=== PATIENT | female | born 1980 | race African-American/Black ===

== ENCOUNTER → 2016-08-25 | Outpatient (CLI) | payer MEDICAID ==
[2016-08-25 09:48] LABS: BASOPHILS % (AUTO) 3 % (0-2); EOSINOPHILS # (AUTO) 0.2 10^3uL; EOSINOPHILS % (AUTO) 4 % (0-4); MEAN CORPUSCULAR HEMOGLOBIN 28.7 PG (26.0-34.0); MEAN CORPUSCULAR HGB CONC 33.3 g/dL (31.0-37.0); MEAN CORPUSCULAR VOLUME 86 FL (80-100); MEAN PLATELET VOLUME 10.9 FL (6.0-9.5); MONOCYTES # (AUTO) 0.5 X10^3; MONOCYTES % (AUTO) 9 % (3-11); NEUTROPHILS # (AUTO) 2.5 X10^3; NEUTROPHILS % (AUTO) 47 % (51-67); PLATELET COUNT 201 10^3uL (150-450); WHITE BLOOD COUNT 5.38 10^3uL (4.0-11.0)
[2016-08-25 10:10] LABS: ALBUMIN 4.4 g/dL (3.4-5.0); ANION GAP 16.1 MEQ/L (3-15); CALCULATED IONIZED CALCIUM 4.5 mg/dL (3.8-4.6); TOTAL PROTEIN 8.1 g/dL (6.4-8.5)
[2016-08-25 18:12] LABS: IRON 99 ug/dL (50-170); UNBOUND IRON CONTENT 315 ug/dl (126-382)
== END ==
LOC: LAB 09:27
PROVIDERS: ATTEND Internal Medicine Hematology & Oncology
DX: D50.9 Iron deficiency anemia, unspecified (principal)
CPT/HCPCS: 36415; 80053; 82728; 83010; 83540; 83550; 83615; 85025